=== PATIENT | male | born 1940 | race Caucasian/White ===

== ENCOUNTER 2016-09-23 16:08 | Emergency (ER) | payer OTHER, MEDICARE ==
[~2016-09-23] VITALS: Ht 175.3 cm; Wt 81.6 kg
--- NOTE | 2016-09-23 16:44 | ED DYSPNEA/ASTHMA COMPLAINT ---
History of Present Illness General Chief Complaint: Dyspnea (COPD, CHF, Other) Stated Complaint: "PILLS STUCK IN LUNG" Source: patient Exam Limitations: no limitations Vital Signs & Intake/Output Vital Signs & Intake/Output Vital Signs Date Time Temp Pulse Resp B/P Pulse O2 O2 Flow FiO2 Ox Delivery Rate 09/23 1713 95 Room Air Room Air 09/23 1620 98.3 89 16 163/81 98 Room Air Allergies Coded Allergies: Sulfa (Sulfonamide Antibiotics) (UNKNOWN - HAD A KID 09/23/16) atorvastatin (MUSCLE PAINS 09/23/16) Reconcile Medications Alprazolam 0.25 MG TABLET 0.5 TAB PO PRN ANXIETY (Reported) Amoxicillin/Potassium Clav (Augmentin XR 1,000-62.5 Tab) 1,000 MG-62.5 MG TAB.ER.12H 1 TAB PO AD DENTAL WORK (Reported) with food Arginine (L-Arginine) (Unknown Strength) TABLET (Unknown Dose) PO BID SUPPLEMENT (Reported) Aspirin (Ecotrin*) 81 MG TABLET.DR 1 TAB PO DAILY HEART/BLOOD (Reported) Citrulline (L-Citrulline) (Unknown Strength) POWDER (Unknown Dose) PO BID SUPPLEMENT (Reported) Ezetimibe (Zetia) 10 MG TABLET 1 TAB PO DAILY CHOLESTEROL (Reported) Metoprolol Succinate 25 MG TAB 1 TAB PO DAILY HEART/BP (Reported) Nitroglycerin (Nitrostat) 0.4 MG TAB.SUBL 1 TAB SL AD PRN CHEST PAIN ( Reported) 1st sign of attack; may repeat every 5 minutes until relief; if pain persists after 3 tablets in 15 minutes, prompt medical att Pitavastatin Calcium (Livalo) 4 MG TABLET 1 TAB PO QPM CHOLESTEROL (Reported) Triage Note: PT TOOK 3 PILLS TODAY AT APPROX 12PM, FELT ONE WAS STUCK IN THROAT. HAS HAD ISSUE CLEARING SECRETIONS AND FEELS LIKE THE PILL COULD HAVE MOVED TO RIGHT LUNG, HE HAS INCREASED DIFFICULTY BREATHING WITH RIGHT SIDED LUNG/CHEST PAIN AND WHEEZING. O2 SAT 94% ROOM, HX PE IN THE 1970'S. DENIES BLOOD THINNERS. HX [place] X2 AND DENIES LEFT SIDED CP, FOLLOWED BY DR [facility]. 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 SPEECH CLEAR. DENIES N/V Triage Nurses Notes Reviewed? yes HPI: Patient presents for evaluation of a possible aspirated pill. Patient states that this morning he took some prostate pills and CoQ10. He states one of them felt as if it got hung up in his throat and he tried to cough it up without apparent leave. 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 He then began to feel some right-sided chest pain and then a substernal chest pain only with coughing. He denies any choking episodes. He states he has no prior history of trouble swallowing. He states he has trouble taking a deep breath because it makes him cough. Past History Travel History Traveled to [place] past 21 day No Medical History Any Pertinent Medical History? see below for history Neurological: NONE EENT: NONE Cardiovascular: [place] X2 CARDIAC STENTS Respiratory: PE Gastrointestinal: NONE Hepatic: NONE Renal: NONE Musculoskeletal: R HIP REPLACEMENT Psychiatric: NONE Endocrine: HYPOGLYCEMIA Blood Disorders: NONE Cancer(s): NONE Surgical History Surgical History: non-contributory Psychosocial History What is your primary language German Tobacco Use: Quit >30 days ago ETOH Use: occasional use Illicit Drug Use: denies illicit drug use Family History Family History, If Any: FATHER FH: CVA (cerebrovascular accident), Onset: 60+. Hx Contributory? No Review of Systems Review of Systems Constitutional: Reports: no symptoms. EENTM: Reports: no symptoms. Respiratory: Reports: see HPI. Cardiovascular: Reports: no symptoms. GI: Reports: no symptoms. Genitourinary: Reports: no symptoms. Musculoskeletal: Reports: no symptoms. Skin: Reports: no symptoms. Neurological/Psychological: Reports: no symptoms. Hematologic/Endocrine: Reports: no symptoms. Immunologic/Allergic: Reports: no symptoms. All Other Systems: Reviewed and Negative Physical Exam Physical Exam Respiratory: SEE BELOW Comments: Gen.: Well-nourished, well-developed, no acute respiratory distress. Head: Normocephalic, atraumatic. Eyes: Normal inspection bilaterally Ears: Normal inspection bilaterally Nose: Normal inspection Throat/mouth : Moist mucosa Neck: Supple, full range of motion, no goiter Heart: Regular rate and rhythm, no murmurs rubs or gallops Lungs: Clear to auscultation bilaterally with normal air entry, although with initiation of deep inspiration patient did have paroxysms of cough Chest: Nontender Back: Normal range of motion Abdomen: Soft, nontender, nondistended, normal bowel sounds Extremities: Normal range of motion grossly, equal radial pulses, no cyanosis clubbing or edema Neurologic: Cranial nerves grossly intact, speech is clear Skin: warm and dry Psychiatric: Calm, cooperative, no apparent delusions or hallucinations Core Measures ACS in differential dx? No Severe Sepsis Present: No Septic Shock Present: No Progress Differential Diagnosis: FOREIGN BODY ASPIRATION, ASPIRATION PNEUMONITIS Plan of Care: Orders Procedure Date/time Status EKG 09/23 1618 Active Diagnostic Imaging: Discussed w/RAD: CT Scan. Radiology Impression: PATIENT: HAKEEM WILBURN PRESENT AGE: 76 PATIENT ACCOUNT NO: [id number] : 41 LOCATION: [facility] ORDERING PHYSICIAN: GRIFFIN HARRIS MD SERVICE DATE: 09/23/16 EXAM TYPE: CAT - CT CHEST WO IV CONTRAST EXAMINATION: CT CHEST WITHOUT CONTRAST CLINICAL INFORMATION : Persistent coughing. Concern for foreign body aspiration. COMPARISON: None. TECHNIQUE: Contiguous axial thin section helical images of the chest were performed without contrast. The data set was reformatted in the coronal and sagittal planes and reviewed on an independent workstation. DLP: 200 mGy-cm. FINDINGS: The heart is of normal size. There is no pericardial effusion. There is neither mediastinal, hilar nor axillary lymphadenopathy. There are no chest wall masses. Review of lung windows demonstrates that there are neither pleural effusions nor pneumothoraces. There are no consolidations. There are no pulmonary parenchymal nodules. The airways are unremarkable. No foreign bodies are demonstrable. Images of the upper abdomen demonstrate that the liver is of normal size and attenuation without focal lesions. Normal adrenal glands are identified. Bone windows: Neither sclerotic nor lytic bone lesions are identified. IMPRESSION: Unremarkable chest CT. Specifically, no foreign bodies demonstrable. DICTATED BY: HAKEEM LIZAMA MD DATE/TIME DICTATED:09/23/161750 [employer] BE[employer] ROASTER HELPER:DARRICK DATE/TIME TRANSCRIBED:09/23/161750 CONFIDENTIAL, DO NOT COPY WITHOUT APPROPRIATE AUTHORIZATION. <Electronically signed in Other Vendor System> SIGNED BY: HAKEEM LIZAMA MD 09/23/161758 Initial ED EKG: NSR, rate (92), no ST T wave changes Prior EKG: unchanged Comments: 09/23/2016 6:24:09 PM I have updated Hakeem on his test results. I feel he is likely suffering from a cough secondary to airway irritation in the absence of a foreign body. Plan symptomatic care. In fact patient states he is feeling better already. Departure Departure Disposition: HOME OR SELF CARE Condition: Stable Clinical Impression Primary Impression: Cough Referrals: MANJULA LAFLEUR,UDAY Banks (PCP/Family) Additional Instructions: Tessalon Perles as prescribed for cough. Follow up with your primary care doctor if there are any lingering symptoms on Monday. Return immediately if fever, worsening cough, chest pain or shortness of breath. Please note that there might be incidental findings in your evaluation that are unrelated to the current emergency department visit. Please notify your primary care doctor about this emergency department visit in order to obtain and review all of the testing performed so that these incidental findings can be monitored as needed. If you had an x-ray performed, please understand that some fractures may not be seen on the initial set of x-rays. If your symptoms persist you might need a repeat set of x-rays to check for such a fracture. If you had a laceration evaluated, please understand that foreign bodies such as glass or wood may not be visible to the naked eye or on plain x-rays. If the wound becomes red, swollen, increasingly more painful or if there is any drainage from the wound, please have it reevaluated by a physician for the possibility of a retained foreign body. Thank you for choosing the [facility] Emergency Department for your care. It was a pleasure to serve you today. Griffin Harris M.D. [facility] Departure Forms: Customer Survey General Discharge Information Prescriptions: Current Visit Scripts Benzonatate (Tessalon Perle) 1 CAP PO TID PRN COUGH #15 CAP Critical Care Note Critical Care Note Critical Care Time: non-applicable
[2016-09-23] MEDS ORDERED: LIVALO4 M1 PO (17:00)
[2016-09-23] MEDS ORDERED: ASPIRIN EC81 M1 PO (17:01)
[2016-09-23] MEDS ORDERED: METOPROLOL SUCC25 M1 PO (17:01)
[2016-09-23] MEDS ORDERED: ZETIA10 M1 PO (17:01)
[2016-09-23] MEDS ORDERED: L-ARGININE500 M2 PO (17:02)
[2016-09-23] MEDS ORDERED: CITRULLINE PO (17:02)
[2016-09-23] MEDS ORDERED: ALPRAZOLAM0.25 M1 PO (17:03)
[2016-09-23] MEDS ORDERED: NITROSTAT0.4 M1 SL (17:03)
[2016-09-23] MEDS ORDERED: AUGMENTIN XR 11 EACH PO (17:04)
--- NOTE | 2016-09-23 17:59 | CT SCAN REPORT ---
EXAMINATION: CT CHEST WITHOUT CONTRAST CLINICAL INFORMATION: Persistent coughing. Concern for foreign body aspiration. COMPARISON: None. TECHNIQUE: Contiguous axial thin section helical images of the chest were performed without contrast. The data set was reformatted in the coronal and sagittal planes and reviewed on an independent workstation. DLP: 200 mGy-cm. FINDINGS: The heart is of normal size. There is no pericardial effusion. There is neither mediastinal, hilar nor axillary lymphadenopathy. There are no chest wall masses. Review of lung windows demonstrates that there are neither pleural effusions nor pneumothoraces. There are no consolidations. There are no pulmonary parenchymal nodules. The airways are unremarkable. No foreign bodies are demonstrable. Images of the upper abdomen demonstrate that the liver is of normal size and attenuation without focal lesions. Normal adrenal glands are identified. Bone windows: Neither sclerotic nor lytic bone lesions are identified. IMPRESSION: Unremarkable chest CT. Specifically, no foreign bodies demonstrable.
[2016-09-23] MEDS ORDERED: TESSALON PERLE100 M1 PO (18:28)
[2016-09-23 18:33] VITALS: BP 158/86
== END 2016-09-23 18:42 ==
LOC: ERH 16:08
DX: R05 Cough (principal); R07.9 Chest pain, unspecified
CPT/HCPCS: 93005; 93010

== ENCOUNTER 2017-01-24 08:51 | Emergency (ER) | payer OTHER, MEDICARE ==
[~2017-01-24] VITALS: Ht 172.7 cm; Wt 77.1 kg
[~2017-01-24 08:51] MED LIST: ALPRAZOLAM0.25 M1 PO; ASPIRIN EC81 M1 PO; AUGMENTIN XR 11 EACH PO; CITRULLINE PO; L-ARGININE500 M2 PO; LIVALO4 M1 PO; METOPROLOL SUCC25 M1 PO; NITROSTAT0.4 M1 SL; TESSALON PERLE100 M1 PO; ZETIA10 M1 PO
--- NOTE | 2017-01-24 09:41 | ED ANKLE/FOOT INJURY COMPLAINT ---
History of Present Illness General Chief Complaint: Foot or Ankle Injury Stated Complaint: INJURY TO L ANKLE Source: patient Exam Limitations: no limitations Vital Signs & Intake/Output Vital Signs & Intake/Output Vital Signs Date Time Temp Pulse Resp B/P B/P Pulse O2 O2 Flow FiO2 Mean Ox Delivery Rate 01/24 1010 99 Room Air 01/24 0858 97.1 83 20 129/73 96 Room Air Allergies Coded Allergies: Sulfa (Sulfonamide Antibiotics) (UNKNOWN - HAD A KID 09/23/16) atorvastatin (MUSCLE PAINS 09/23/16) Reconcile Medications Alprazolam 0.25 MG TABLET 0.5 TAB PO PRN ANXIETY (Reported) Amoxicillin/Potassium Clav (Augmentin XR 1,000-62.5 Tab) 1,000 MG-62.5 MG TAB.ER.12H 1 TAB PO AD DENTAL WORK (Reported) with food Arginine (L-Arginine) (Unknown Strength) TABLET (Unknown Dose) PO BID SUPPLEMENT (Reported) Aspirin (Ecotrin*) 81 MG TABLET.DR 1 TAB PO DAILY HEART/BLOOD (Reported) Cephalexin (Keflex) 500 MG CAPSULE 1 CAP PO TID CELLULITIS Citrulline (L-Citrulline) (Unknown Strength) POWDER (Unknown Dose) PO BID SUPPLEMENT (Reported) Ezetimibe (Zetia) 10 MG TABLET 1 TAB PO DAILY CHOLESTEROL (Reported) Metoprolol Succinate 25 MG TAB 1 TAB PO DAILY HEART/BP (Reported) Nitroglycerin (Nitrostat) 0.4 MG TAB.SUBL 1 TAB SL AD PRN CHEST PAIN ( Reported) 1st sign of attack; may repeat every 5 minutes until relief; if pain persists after 3 tablets in 15 minutes, prompt medical att Pitavastatin Calcium (Livalo) 4 MG TABLET 1 TAB PO QPM CHOLESTEROL (Reported) Triage Note: PT TO ED C/O LEFT ANKLE PAIN. PT STATES A SPEAKER FELL ON TOP OF HIS LEFT FOOT YESTERDAY. TODAY PT C/O LEFT ANKLE PAIN, UNSURE IF SPEAKER HIT ANKLE. REDDENED AREA NOTED TO OUTER ANKLE. DECLINING MEDS IN TRIAGE. PAIN WORSE WITH WEIGHT BEARING. Triage Nurses Notes Reviewed? yes Occurred: yesterday Duration: day(s): (1) Timing: no prior history Severity: moderate Pain/Injury Location: Left: Foot, Ankle. Method of Injury: direct blow Modifying Factors: Improves With: immobilization. Worsens With: movement. Associated Symptoms: swelling, redness HPI: Patient is a 76-year-old male presenting to the emergency department with chief complaint of left foot and left ankle pain that has been going on since yesterday. Patient reports that he dropped something on his left foot, didn't think he hit his left ankle but has had pain and some redness since waking up this morning. Denies any fevers or chills. No spreading of the redness. Area is tender to palpation and when he walks. He denies being bitten by anything. Denies any calf pain. No numbness or tingling. (KEENAN HAWLEY) Past History Travel History Traveled to [place] past 21 day No Medical History Any Pertinent Medical History? see below for history Neurological: NONE EENT: NONE Cardiovascular: hyperlipidemia, [place] X2 CARDIAC STENTS Respiratory: PE Gastrointestinal: NONE Hepatic: NONE Renal: NONE Musculoskeletal: R HIP REPLACEMENT Psychiatric: NONE Endocrine: HYPOGLYCEMIA Blood Disorders: NONE Cancer(s): NONE Surgical History Surgical History: non-contributory Psychosocial History What is your primary language Venezuelan Tobacco Use: Quit >30 days ago ETOH Use: denies use Illicit Drug Use: denies illicit drug use Family History Family History, If Any: FATHER FH: CVA (cerebrovascular accident), Onset: 60+. Hx Contributory? No (KEENAN HAWLEY) Review of Systems Review of Systems Constitutional: Reports: no symptoms. Comments Review of systems: See HPI, All other systems negative. Constitutional, no chills fever or weight loss HEENT: No visual changes no sore throat no congestion Cardiovascular: No chest pain ,palpitation Skin, no jaundice Respiratory: No dyspnea cough sputum or hemoptysis GI: No nausea no vomiting : No dysuria No hematuria Muscle skeletal: no back pain, no neck pain, Neurologic: No numbness no confusion no lombardi Psych: No stress anxiety or depression,. Heme/endocrine: No bruising no bleeding no polyuria or polydipsia Immunology: No splenectomy or history of AIDS (KEENAN HAWLEY) Physical Exam Physical Exam General Appearance: well developed/nourished, no apparent distress, alert, awake , comfortable Leg/Knee/Thigh Left: normal range of motion, normal inspection Comments: Well-developed well-nourished person in no acute distress HEENT: atraumatic, Nose is atraumatic. Neck: normal inspection Back: Nontender Cardiovascular: Regular rate and rhythms no murmurs rubs or gallops, normal JVP Respiratory: Chest nontender. No respiratory distress.breath sounds clear to auscultation bilaterally Extremity: Mild tenderness to palpation over the medial malleolus on the left lower extremity, full range of motion of lower extremities without difficulty or pain. Pedal pulses are 2+ bilaterally. Small area of ecchymosis approximately 3 cm noted of the dorsum of the left foot that is mildly tender to palpation. No calf pain to palpation bilaterally. Neuro: Alert oriented x3, motor sensory normal Skin: Mild erythema approximately 4-5 cm noted over the medial malleolus on the left lower extremity. Tender palpation of this area. No fluctuance. Area is blanchable. Mildly warm. Psych: Mood and affect is normal, memory and judgment is normal. (JAMES MANUEL,KEENAN) Progress Differential Diagnosis: cellulitis, gout, fracture, dislocation, sprain, contusion Plan of Care: Orders Procedure Date/time Status XRY-FOOT COMPLETE, LEFT 01/24 943 Active XRY-ANKLE 3 OR MORE VIEWS L 01/24 943 Active Likely contusion. No signs of fracture on x-ray. Area of erythema may be early cellulitis or abrasion, etiology is unclear at this time, no known trauma. No calf tenderness. Pedal pulses intact. (JAMES MANUEL,KEENAN) Diagnostic Imaging: Viewed by Me: Radiology Read. Discussed w/RAD: Radiology Read. Radiology Impression: PATIENT: LONNIE WILBURN III PRESENT AGE: 76 PATIENT ACCOUNT NO: [id number] : 41 LOCATION: [facility] ORDERING PHYSICIAN: KEENAN MANUEL SERVICE DATE: 01/24/17 EXAM TYPE: RAD - XRY-FOOT COMPLETE, LEFT EXAMINATION: XR FOOT, LEFT CLINICAL INFORMATION: Trauma, pain COMPARISON: None TECHNIQUE: AP, lateral, and oblique views of the left foot. FINDINGS: There is no acute fracture or dislocation of the left foot. Mild soft tissue swelling along the medial aspect of the forefoot , adjacent to the first metacarpal phalangeal joint noted. No definite acute fracture seen. No radiodense foreign body. Plantar calcaneal spur is present. IMPRESSION: No acute fracture or dislocation of the left foot. DICTATED BY: ANIBAL MCKINLEY MD DATE/TIME DICTATED:01/24/171025 FIELD CASHIER:DARRICK DATE/TIME TRANSCRIBED:01/24/171025, PATIENT: LONNIE WILBURN III PRESENT AGE: 76 PATIENT ACCOUNT NO: [id number] : 41 LOCATION: [facility] ORDERING PHYSICIAN: KEENAN MANUEL SERVICE DATE: 01/24/17 EXAM TYPE: RAD - XRY-ANKLE 3 OR MORE VIEWS L EXAMINATION: XR ANKLE, LEFT CLINICAL INFORMATION: Status post injury to the left ankle. Pain. COMPARISON: None TECHNIQUE: AP, lateral, and mortise views of the left ankle. FINDINGS: No evidence of fracture or dislocation. Ankle mortise is intact. Articular margins are normal. Small inferior calcaneal spur is noted at the insertion of plantar aponeurosis. Mild vascular calcifications are noted. No soft tissue swelling or soft tissue air. IMPRESSION: No evidence of acute fracture or dislocation in the left ankle. Small plantar calcaneal spur. DICTATED BY: PADILLA JIMENEZ MD DATE/TIME DICTATED:01/24/171030 FIELD CASHIER:DARRICK DATE/TIME TRANSCRIBED:1030 CONFIDENTIAL, DO NOT COPY WITHOUT APPROPRIATE AUTHORIZATION. < Electronically signed in Other Vendor System> SIGNED BY: PADILLA JIMENEZ MD 1035 (KEENAN HAWLEY) Departure Departure Time of Disposition: 1046 Disposition: HOME OR SELF CARE Condition: Stable Clinical Impression Primary Impression: Foot contusion Qualifiers: Encounter type: initial encounter Laterality: left Qualified Code: S90.32XA - Contusion of left foot, initial encounter Secondary Impressions: Cellulitis Qualifiers: Site of cellulitis: extremity Site of cellulitis of extremity: lower extremity Laterality: left Qualified Code: L03.116 - Cellulitis of left lower limb Referrals: UDAY FAIR MD (PCP/Family) Additional Instructions: Follow-up with your primary care physician collimating appointment. Rest and elevate your affected extremity as much as possible. Take ANTIBIOTICS as prescribed. Use [id number] Tylenol as directed to help with pain. Apply ice as needed. Departure Forms: Customer Survey General Discharge Information Prescriptions: Current Visit Scripts Cephalexin (Keflex) 1 CAP PO TID #21 CAP (JAMES MANUEL,KEENAN) PA/ANATOMIC PATHOLOGIST Co-Sign Statement Statement: ED Attending supervision documentation- [X] I saw and evaluated the patient. I have also reviewed all the pertinent lab results and diagnostic results. I agree with the findings and the plan of care as documented in the PA's/ANATOMIC PATHOLOGIST's documentation. [] I have reviewed the ED Record and agree with the PA's/ANATOMIC PATHOLOGIST's documentation. [] Additions or exceptions (if any) to the PAs/ANATOMIC PATHOLOGIST's note and plan are summarized below: [] (LYLA BLAS DO
--- NOTE | 2017-01-24 10:35 | RADIOLOGY REPORT ---
EXAMINATION: XR ANKLE, LEFT CLINICAL INFORMATION: Status post injury to the left ankle. Pain. COMPARISON: None TECHNIQUE: AP, lateral, and mortise views of the left ankle. FINDINGS: No evidence of fracture or dislocation. Ankle mortise is intact. Articular margins are normal. Small inferior calcaneal spur is noted at the insertion of plantar aponeurosis. Mild vascular calcifications are noted. No soft tissue swelling or soft tissue air. IMPRESSION: No evidence of acute fracture or dislocation in the left ankle. Small plantar calcaneal spur.
--- NOTE | 2017-01-24 10:38 | RADIOLOGY REPORT ---
EXAMINATION: XR FOOT, LEFT CLINICAL INFORMATION: Trauma, pain COMPARISON: None TECHNIQUE: AP, lateral, and oblique views of the left foot. FINDINGS: There is no acute fracture or dislocation of the left foot. Mild soft tissue swelling along the medial aspect of the forefoot, adjacent to the first metacarpal phalangeal joint noted. No definite acute fracture seen. No radiodense foreign body. Plantar calcaneal spur is present. IMPRESSION: No acute fracture or dislocation of the left foot.
[2017-01-24] MEDS ORDERED: KEFLEX500 M1 PO (10:49)
[2017-01-24 12:28] VITALS: BP 124/74
== END 2017-01-24 12:29 ==
LOC: ERH 08:51
DX: S90.32XA Contusion of left foot, initial encounter (principal); L03.116 Cellulitis of left lower limb; W20.8XXA Other cause of strike by thrown, projected or falling object, initial encounter; Y93.9 Activity, unspecified; Y92.9 Unspecified place or not applicable
CPT/HCPCS: 73610-LT; 73630-LT

== ENCOUNTER 2018-02-03 11:15 | Emergency (ER) | payer OTHER ==
[~2018-02-03] VITALS: Ht 172.7 cm; Wt 78.9 kg
[~2018-02-03 11:15] MED LIST changes: +FIBER PO; +FRUIT & VEGETA1 EACH PO; +KEFLEX500 M1 PO; +[UNRECOGNIZED DRUG - OTHER] PO
--- NOTE | 2018-02-03 12:04 | ED GENERAL ADULT ---
History of Present Illness General Chief Complaint: General Adult Stated Complaint: CONFUSION,BLURRY VISION Source: patient, family Exam Limitations: no limitations Vital Signs & Intake/Output Vital Signs & Intake/Output Vital Signs Date Time Temp Pulse Resp B/P B/P Pulse O2 O2 Flow FiO2 Mean Ox Delivery Rate 02/03 1457 97.6 73 18 125/70 95 Room Air 02/03 1201 Room Air 02/03 1119 97.4 85 18 127/69 92 Room Air Room Air ED Intake and Output 02/04 0000 02/03 1200 Intake Total Output Total Balance Patient 174 lb Weight Weight Standing Scale Measurement Method Allergies Coded Allergies: Sulfa (Sulfonamide Antibiotics) (UNKNOWN - HAD A KID 09/23/16) atorvastatin (MUSCLE PAINS 09/23/16) Reconcile Medications Alprazolam 0.25 MG TABLET 0.5 TAB PO PRN ANXIETY (Reported) Arginine (L-Arginine) (Unknown Strength) TABLET (Unknown Dose) PO BID SUPPLEMENT (Reported) Citrulline (L-Citrulline) (Unknown Strength) POWDER (Unknown Dose) PO BID SUPPLEMENT (Reported) Clopidogrel Bisulfate (Clopidogrel) 75 MG TABLET 1 TAB PO DAILY BLOOD THINNER (Reported) Ezetimibe (Zetia) 10 MG TABLET 1 TAB PO DAILY CHOLESTEROL (Reported) [FIBER & SPICE] SUPPLEMENT (Reported) Lycopene/Lut Xt/Fruit Extracts (Fruit & Vegetable Daily Sftgel) 5 MG-6 MG-150 MG CAPSULE 1 CAP PO DAILY SUPPLEMENT (Reported) Metoprolol Succinate 25 MG TAB 2 TAB PO QAM HEART/BP (Reported) Nitroglycerin (Nitrostat) 0.4 MG TAB.SUBL 1 TAB SL AD PRN CHEST PAIN ( Reported) 1st sign of attack; may repeat every 5 minutes until relief; if pain persists after 3 tablets in 15 minutes, prompt medical att Pitavastatin Calcium (Livalo) 4 MG TABLET 1 TAB PO QPM CHOLESTEROL (Reported) Saw/Vit E/Sod Mamie/Lyc/Beta/Pyg (Prostate Health Caplet) 160-100 TABLET 1 TAB PO DAILY SUPPLEMENT (Reported) Ubidecarenone (Co Q-10) (Unknown Strength) CAPSULE (Unknown Dose) PO DAILY SUPPLEMENT (Reported) Triage Note: TRIAGE: 77 Y/O MALE W PMH OF TIA, HYPERLIPIDEMIA, AND [place] X2 - NOW PRESENTS WITH WORD-FINDING DIFFICULTIES. EVAL IN TRIGE: TO ROOM 18 AT THIS TIME. Triage Nurses Notes Reviewed? yes HPI: This is a 77-year-old male with history of hyperlipidemia, hypertension, coronary artery disease status post PCI, prior TIA, presenting to the emergency department with about 45 minutes of productive aphagia with blurred vision. Patient states that he was getting ready to go outside and mow the lawn when he developed spontaneous blurriness of his vision, no diplopia, no headache,/nausea /vomiting. Patient states that he also had difficulty finding words such as air -conditioner. His brought him to the hospital. Upon arrival, he notes that his symptoms have completely abated and he is well-appearing and hemodynamic Mark/neurologically stable upon arrival. He denies any recent travel /trauma/illness. He has been taking all his medications, although for the past week or so has accidentally been taking 1 metoprolol the morning as opposed to his prescribed 2. (Freddy Lyon MD) Past History Travel History Traveled to [place] past 21 day No Medical History Any Pertinent Medical History? see below for history Neurological: TIA EENT: NONE Cardiovascular: hyperlipidemia, [place] X2 CARDIAC STENTS Respiratory: PE Gastrointestinal: NONE Hepatic: NONE Renal: NONE Musculoskeletal: R HIP REPLACEMENT Psychiatric: NONE Endocrine: HYPOGLYCEMIA Blood Disorders: NONE Cancer(s): NONE Surgical History Surgical History: right carotid endarterectomy cardiac catheterization with stent placement tonsillectomy right hip replacement Psychosocial History What is your primary language Macedonian Tobacco Use: Never used ETOH Use: occasional use Illicit Drug Use: denies illicit drug use Family History Family History, If Any: FATHER FH: CVA (cerebrovascular accident), Onset: 60+. Hx Contributory? No (Freddy Lyon MD) Review of Systems Review of Systems Constitutional: Reports: no symptoms. EENTM: Reports: no symptoms. Respiratory: Reports: no symptoms. Cardiovascular: Reports: no symptoms. GI: Reports: no symptoms. Genitourinary: Reports: no symptoms. Musculoskeletal: Reports: no symptoms. Skin: Reports: no symptoms. Neurological/Psychological: Reports: see HPI. Hematologic/Endocrine: Reports: no symptoms. Comments No chest pain/difficulty breathing/abdominal pain. Patient denies any weakness prior to arrival. According to the , there is no facial droop. (Freddy Lyon MD) Physical Exam Physical Exam General Appearance: well developed/nourished, no apparent distress, alert, comfortable Head: atraumatic, normal appearance Eyes: Bilateral: normal appearance, PERRL, EOMI. Ears, Nose, Throat: normal pharynx, normal ENT inspection, hearing grossly normal Neck: normal inspection, supple, full range of motion, no midline tenderness Respiratory: normal breath sounds, chest non-tender, no respiratory distress Cardiovascular: regular rate/rhythm, edema, normal peripheral pulses Gastrointestinal: soft, non-tender Rectal: deferred Back: normal inspection, normal range of motion Extremities: normal inspection, normal capillary refill, normal range of motion, no edema Neurologic/Psych: no motor/sensory deficits, awake, alert, oriented x 3, normal gait, normal mood/affect, child care director II-XII nml as tested Skin: intact, normal color, warm/dry Comments: Neurologically intact, cranial nerves II through XII intact. No dysmetria, dysdiadochokinesis, Romberg, normal finger to nose. Core Measures ACS in differential dx? No CVA/TIA Diagnosis: Yes Sepsis Present: No Sepsis Focused Exam Completed? No (Camron LAFLEUR,Freddy) Progress Differential Diagnoses I considered the following diagnoses in my evaluation of the patient: Some concern for transient ischemic attack in this patient. Mild concern for metabolic derangement. Low suspicion for underlying occult infection such as urinary tract infection given lack of suggestive symptoms or clinical findings. Could be small stroke. Plan of Care: Orders Procedure Date/time Status Regular Diet 02/03 D Active FingerStick- Glucose 02/03 1201 Active COMPREHENSIVE METABOLIC PANEL 02/03 1201 Complete CBC WITHOUT DIFFERENTIAL 02/03 1201 Complete EKG 02/03 1201 Active Laboratory Tests 02/03/18 1200: Anion Gap 12, Estimated GFR > 60, BUN/Creatinine Ratio 20.0, Glucose 91, Calcium 9.4, Total Bilirubin 0.9, AST 30, ALT 44, Alkaline Phosphatase 81, Total Protein 6.9, Albumin 4.4, Globulin 2.5, Albumin/Globulin Ratio 1.8, CBC w Diff NO MAN DIFF REQ, RBC 5.37, MCV 91.1, MCH 29.7, MCHC 32.6 L, RDW 13.4, MPV 9.3, Gran % 69.0, Lymphocytes % 18.3 L, Monocytes % 9.8 H, Eosinophils % 2.6, Basophils % 0.3, Absolute Granulocytes 5.8, Absolute Lymphocytes 1.5, Absolute Monocytes 0.8 H, Absolute Eosinophils 0.2, Absolute Basophils 0 Plan for labs, glucose check, EKG, CT head and neck with angiography, reassessment, plan for discussion with patient's primary doctor/on-call for further management/workup. Labs are reassuring. CT head and neck/angiography are nonacute. Patient is very well-appearing on reassessment, walking the department, eats lunch. No return of symptoms while in the department. Case discussed with nurse practitioner Dorothy at Dr. Rosales's office. Dr. Rosales also comments on the case. He states that we should restart Hakeem on aspirin, 81 mg daily. He will follow-up on Monday with Dr. Rosales's office for further evaluation. He is given strict return precautions and discharged home. Initial ED EKG: normal axis, normal intervals, normal p-waves, normal QRS complex, no ST T wave changes, abnormal Q waves, inferior q waves noted; old (Freddy Lyon MD) Departure Departure Time of Disposition: 1457 Disposition: HOME OR SELF CARE Condition: Stable Clinical Impression Primary Impression: TIA (transient ischemic attack) Referrals: Zach Rosales MD (PCP/Family) Additional Instructions: Thank you for coming [facility] today. As we discussed, it appears that you have had a transient ischemic attack or TIA (mini stroke). This does increase her risk of a actual stroke and he will require prompt outpatient assessment for further workup. Today, your tests showed no acute changes and your neurologic exam was normal. If you develop any new or worsening symptoms, please return immediately to the emergency department, calling 911. Symptoms such as difficulty with speech, vision, thinking are concerning. Departure Forms: Customer Survey General Discharge Information (Freddy Lyon MD) PA/LABOR UTILIZATION SUPERINTENDENT Co-Sign Statement Statement: ED Attending supervision documentation- [] I saw and evaluated the patient. I have also reviewed all the pertinent lab results and diagnostic results. I agree with the findings and the plan of care as documented in the PA's/LABOR UTILIZATION SUPERINTENDENT's documentation. [x] I have reviewed the ED Record and agree with the PA's/LABOR UTILIZATION SUPERINTENDENT's documentation. [] Additions or exceptions (if any) to the PAs/LABOR UTILIZATION SUPERINTENDENT's note and plan are summarized below: [] (David LAFLEUR,Minerva) Critical Care Note Critical Care Note Critical Care Time: non-applicable (Freddy Lyon MD)
[2018-02-03] MEDS ORDERED: CLOPIDOGREL75 M1 PO (12:18)
[2018-02-03] MEDS ORDERED: PROSTATE HEALT1 EACH PO (12:19)
[2018-02-03] MEDS ORDERED: CO Q-10300 MG PO (12:19)
[2018-02-03 12:23] LABS: ABSOLUTE BASOPHIL COUNT 0 /CUMM (0.0-0.2); ABSOLUTE EOSINOPHIL COUNT 0.2 /CUMM (0.0-0.7); ABSOLUTE GRANULOCYTE CT 5.8 /CUMM (1.4-6.5); ABSOLUTE LYMPH COUNT 1.5 /CUMM (1.2-3.4); ABSOLUTE MONOCYTE COUNT 0.8 /CUMM (0.10-0.60); BASOPHIL % 0.3 % (0.0-2.0); EOSINOPHIL % 2.6 % (0-5); HEMATOCRIT 48.9 % (42-52); MEAN CORPUSCULAR HGB 29.7 PG (27.0-31.0); MEAN CORPUSCULAR HGB CONC 32.6 G/DL (33.0-37.0); MEAN CORPUSCULAR VOLUME 91.1 FL (80.0-94.0); MEAN PLATELET VOLUME 9.3 FL (7.4-10.4); PLATELET COUNT 205 /CUMM (130-400); RBC DISTRIBUTION WIDTH 13.4 % (11.5-14.5); RED BLOOD CELL CT 5.37 /CUMM (4.70-6.10); WHITE BLOOD CELL COUNT 8.4 /CUMM (4.8-10.8)
--- NOTE | 2018-02-03 14:00 | CT SCAN REPORT ---
EXAMINATION: CT ANGIOGRAM NECK WITH CONTRAST CT ANGIOGRAM BRAIN WITH CONTRAST CLINICAL INFORMATION: Aphasia. TIA. COMPARISON: MRI of the brain from 03/24/2017 TECHNIQUE: Test bolus sequences followed by intravenous administration 119 mL of Optiray 350. Helical imaging was performed in the axial plane from the thoracic inlet to the skull vertex. Delayed postcontrast imaging of the head was also performed. The data was processed at the production control technologist workstation for generation of MIP sequences. Angled MIPs and volume rendered reformatted images were also generated at an offline 3D workstation. Stenoses are assessed in accordance with NASCET criteria unless otherwise indicated. DLP: 2640 mGy-cm FINDINGS: Nonvascular: Accounting for breathing artifact the lung apices are clear. No upper mediastinal adenopathy. No discrete thyroid lesions. The imaged pharyngeal and laryngeal contours as well as the oral cavity appear unremarkable. The parotid glands are symmetric in attenuation. The submandibular glands are symmetric in attenuation. No evidence of sialadenitis. There are several scattered surgical clips in the right neck along the margins of the sternocleidomastoid and in the right carotid space. Correlate with surgical history. No cervical adenopathy. There is a left ocular lens extraction. There is no evidence of hemorrhage, edema, mass effect, hydrocephalus, extra-axial collection, or evolving territorial infarct. There is a chronic lacunar infarct in the right caudate head. There is moderate hypoattenuation in the bihemispheric white matter compatible with chronic microangiopathy. There is moderate generalized prominence of the ventricles, sulci, and extra-axial series of spaces. These findings are stable from the prior across modalities. No abnormal intracranial enhancement is evident. Minor mucosal thickening at the left maxillary base. The nasal cavity is clear with leftward nasal septal deviation and spurring. The mastoid air cells and middle ear cavities are clear. The temporomandibular joints articulate normally. There appears to been a recent extraction of the second right mandibular premolar there is mild periodontal and periapical lucency involving the first left mandibular molar where there has been prior root canal. There is multilevel cervical spondylosis, with near complete intervertebral disc height loss, endplate spurring and sclerosis, without evidence of high-grade bony canal stenosis. No acute osseous abnormality. Vascular: The ascending aortic arch measures 3.8 cm in diameter. There is mild calcified and noncalcified atheroma primarily involving the mid descending portion of the aortic arch. There is conventional branching of the great vessels with mild calcification but no hemodynamically significant stenosis visualized. The origin of the right common carotid artery is obscured by adjacent dense venous contrast. There is mild calcification at the origin of the right vertebral artery and left vertebral artery without evidence of high-grade stenosis. The common carotid arteries appear fairly normal in caliber. There is noncalcified atheroma creating mild luminal irregularity on the right. There is mild calcification at the left carotid bulb. There is noncalcified atheroma at the origin of the left internal carotid artery, and some calcified atheroma slightly more distally. 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 There is mild luminal narrowing of the remainder of the proximal left internal carotid artery. Distally the vessel appears unremarkable in its cervical course. The right carotid bulb and cervical right internal carotid artery appear unremarkable. The cervical vertebral arteries appear unremarkable. The right vertebral artery is slightly dominant. There is scattered calcification of the distal internal carotid arteries. A fairly robust left posterior communicating artery appears unremarkable. A fairly robust right posterior communicating artery also appears unremarkable. The carotid termini appear normal. The right MCA and branches appear normal. The right CHERI and branches appear unremarkable. The anterior commuting artery is unremarkable. The left MCA and branches appear unremarkable. The left CHERI and branches appear unremarkable. The intradural vertebral arteries are free of hemodynamically significant stenosis. There is mild tortuosity of the vessels and mild calcification involving the left vertebral V4 segment. The basilar artery appears unremarkable. The vertebrobasilar branches appear normal in caliber. No evidence of aneurysm, vascular malformation, high-grade stenosis or occlusion. The major dural venous sinuses, deep and cortical veins opacify normally. IMPRESSION: 1. No acute cranial abnormality. No abnormal intercranial enhancement. Moderate chronic microangiopathy and volume loss. Chronic lacunar infarct in the right caudate head. 2. Posterolateral changes in the right neck. Correlation with surgical history. 3. No occlusion or hemodynamically significant stenosis involving the arteries of the head or neck. 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
[2018-02-03 14:57] VITALS: BP 125/70
== END 2018-02-03 15:11 ==
LOC: ERH 11:15
PROVIDERS: Student in an Organized Health Care Education/Training Program
DX: G45.9 Transient cerebral ischemic attack, unspecified (principal); H53.8 Other visual disturbances; R13.0 Aphagia
CPT/HCPCS: 93005; 93010; Q9965